=== PATIENT | female | born 1970 | race Caucasian/White ===

== ENCOUNTER 2016-11-16 11:01 | Emergency (ER) | payer OTHER ==
[2016-11-16 11:14] VITALS: TEMP 98.3; BMI 36.6
--- NOTE | 2016-11-16 11:32 | PDOC ---
History of Present Illness - General Chief Complaint: Pain Stated Complaint: PAIN Time Seen by Provider: 11/16/16 11:31 History Source: Patient, Interior Decorator Used (intelligence engineer [id number]) - History of Present Illness Initial Comments: 11/16/16 12:09 Chief complaint: "My stomach is large and I have a lot of abdominal pain." Pt. is a 46 y/o female with PMH umbilical hernial presents to the ED complaining of worsening abdominal pain for 2 days. Pt. states that she was diagnosed with an abdominal hernia 5 yrs ago and did not have surgery at that time. She states that she noticed her hernia getting larger over the last year. Her pain has increased as well. Pt. vomited twice this morning, and states that her stomach is larger. Admits to urinary frequency, constipation, weakness, abdominal pain with walking, but denies changes in color to the stool. Denies headache, fevers, chills, palpitations, chest pain, and SOB. Past History - Travel Traveled outside of the country in the last 30 days: No Close contact w/someone who was outside of country & ill: No - Past Medical History Allergies/Adverse Reactions: Allergies Allergy/AdvReac Type Severity Reaction Status Date / Time No Known Allergies Allergy Verified 11/16/16 11:04 Home Medications: Ambulatory Orders Unobtainable [Unobtainable] 11/16/16 Other medical history: arthritis - Psycho/Social/Smoking Cessation Hx Anxiety: No Suicidal Ideation: No Smoking History: Never smoked Have you smoked in the past 12 months: No Information on smoking cessation initiated: No Hx Alcohol Use: No Drug/Substance Use Hx: No Substance Use Type: None Review of Systems - Review of Systems Able to Perform ROS?: Yes Comments:: 11/16/16 12:39 intelligence engineer used, [id number] *Physical Exam - Vital Signs Last Vital Signs Temp Pulse Resp BP Pulse Ox 98.3 F 96 H 18 151/87 90 L 11/16/16 11:05 11/16/16 11:05 11/16/16 11:05 11/16/16 11:05 11/16/16 11:05 - Physical Exam General Appearance: Yes: Nourished, Appropriately Dressed, Mild Distress, Obese Respiratory/Chest: positive: Lungs Clear, Normal Breath Sounds, Respiratory Distress, Accessory Muscle Use. negative: Chest Tender, Rales, Rhonchi, Stridor , Wheezing Cardiovascular: positive: Regular Rhythm, Regular Rate, S1, S2 (present). negative: Murmur Gastrointestinal/Abdominal: positive: Normal Bowel Sounds, Tender (Diffuse abdominal tenderness with percussion and palpation. Tender over the hernia.), Soft, Distended, Hernia (Umbilical hernia approximately 2 cm, incarcerated.) Integumentary: positive: Normal Color, Dry, Warm Neurologic: positive: dental equipment repairer II-XII NML intact, Fully Oriented, Normal Response, Motor Strength / ED Treatment Course - LABORATORY CBC & Chemistry Diagram: 11/16/16 12:25 11/16/16 12:25 Medical Decision Making - Medical Decision Making 11/16/16 13:28 Pt. is a 46 y/o female with PMH of umbilical hernia who presents with worsening abdominal pain. Hernia is currently incarcerated. Tender over the hernia and LLQ , RLQ. Given her symptoms and history; will obtain CT abdomen at this time to r /o strangulation, SBO, bowel perforation. Will start IV fluids and medicate for pain. Re-evaluate. 11/16/16 16:[address], waiting for read at this time. Disposition after CT is read. Sign out given to Kristen Alston PA-C. *DC/Admit/Observation/Transfer Diagnosis at time of Disposition: Incarcerated umbilical hernia
[2016-11-16] MEDS ORDERED: SODIUM CHLORIDE 1,000 ML IV STA (11:57)
[2016-11-16] MEDS ORDERED: morphine CARPU-JECT 2 MG/1 ML DISP.SYRIN IVPUSH ONE (12:04)
[2016-11-16] MEDS ORDERED: morphine CARPU-JECT 2 MG/1 ML DISP.SYRIN ONE (12:17)
[2016-11-16 12:48] LABS: BASOPHIL 0.7 % (0-2.0); EOSINOPHIL 3.1 % (0-4.5); MCH 28.8 pg (25.7-33.7); MCHC 33.1 g/dl (32.0-36.0); MEAN CELL VOLUME 86.8 fl (80-96); MEAN PLT VOLUME 8.7 fl (7.5-11.1); NEUTROPHILS 51.7 % (42.8-82.8); PLATELET COUNT 274 K/MM3 (134-434); RDW 14.2 % (11.6-15.6); WHITE BLOOD COUNT 8.6 K/mm3 (4.0-10.0)
--- NOTE | 2016-11-16 13:14 | PDOC ---
*Physical Exam - Vital Signs Last Vital Signs Temp Pulse Resp BP Pulse Ox 98.3 F 96 H 18 151/87 90 L 11/16/16 11:05 11/16/16 11:05 11/16/16 11:05 11/16/16 11:05 11/16/16 11:05 - Physical Exam Comments: 11/16/16 13:13 Vital signs stable. Morbidly obese female Abdomen is distended, soft and diffusely tender greatest in the mid abdomen. There is a nonreducible umbilical hernia without discoloration, bowel sounds are otherwise within normal limits. ED Treatment Course - LABORATORY CBC & Chemistry Diagram: 11/16/16 12:25 11/16/16 12:25 - Medications Given in the ED: ED Medications Discontinued Medications Generic Name Dose Route Start Last Admin Trade Name Freq PRN Reason Stop Dose Admin Sodium Chloride 1,000 mls @ 1,000 mls/hr 11/16/16 11:57 11/16/16 12:20 Normal Saline - IV 11/16/16 12:56 1,000 mls/hr ASDIR STA Administration Morphine Sulfate 2 mg 11/16/16 12:04 11/16/16 12:20 Morphine Injection - IVPUSH 11/16/16 12:05 2 mg ONCE ONE Administration Medical Decision Making - Medical Decision Making 11/16/16 13:13 Patient seen and evaluated with the nurse practitioner. I agree with the overall evaluation, assessment, and management with the following summary of visit: 46-year-old female with 8 year history of umbilical hernia presents with obstruction-type symptoms, tender on exam with at least incarcerated umbilical hernia. Check labs, urinalysis Pain control CT of the abdomen and pelvis Reassess *DC/Admit/Observation/Transfer Diagnosis at time of Disposition: Irreducible umbilical hernia
[2016-11-16 13:17] LABS: ALBUMIN 3.9 g/dl (3.4-5.0); ANION GAP 8 (8-16); BILIRUBIN,TOTAL 0.3 mg/dL (0.2-1.0); CALCIUM 8.9 mg/dL (8.5-10.1); CO2 28 mmol/L (21-32); COCKROFT - GAULT 188.445; CREATININE 0.6 mg/dL (0.55-1.02); GLUCOSE,RANDOM 165 mg/dL (74-106); SGOT/AST 27 U/L (15-37); SGPT/ALT 47 U/L (12-78); TOT PROT 8.1 g/dl (6.4-8.2)
[2016-11-16 13:18] LABS: ALK PHOS 94 U/L (45-117)
--- NOTE | 2016-11-16 16:43 | PDOC ---
ED Treatment Course - LABORATORY CBC & Chemistry Diagram: 11/16/16 12:25 11/16/16 12:25 - ADDITIONAL ORDERS Additional order review: Laboratory Results 11/16/16 12:25 Sodium 139 Potassium 4.1 Chloride 103 Carbon Dioxide 28 Anion Gap 8 BUN 13 Creatinine 0.6 Creat Clearance w eGFR > 60 Random Glucose 165 H Calcium 8.9 Total Bilirubin 0.3 AST 27 ALT 47 Alkaline Phosphatase 94 Total Protein 8.1 Albumin 3.9 11/16/16 12:25 RBC 4.51 MCV 86.8 MCHC 33.1 RDW 14.2 MPV 8.7 Neutrophils % 51.7 Lymphocytes % 38.9 Monocytes % 5.6 Eosinophils % 3.1 Basophils % 0.7 - Medications Given in the ED: ED Medications Discontinued Medications Generic Name Dose Route Start Last Admin Trade Name Freq PRN Reason Stop Dose Admin Sodium Chloride 1,000 mls @ 1,000 mls/hr 11/16/16 11:57 11/16/16 12:20 Normal Saline - IV 11/16/16 12:56 1,000 mls/hr ASDIR STA Administration Morphine Sulfate 2 mg 11/16/16 12:04 11/16/16 12:20 Morphine Injection - IVPUSH 11/16/16 12:05 2 mg ONCE ONE Administration Progress Note - Progress Note Progress Note: I have received report from SAVI Burton regarding this patient. Pt's initial chief complaint: large and painful stomach Pt's work up completed prior to sign out: labs Pt treatment given from prior staff: IV morphine and IV fluids Pt plan to be completed: Waiting for CT abd/pelvis read Dispo: Pending Medical Decision Making - Medical Decision Making A/P: 46 y/o afebrile female with PMH umbilical hernia c/o worsening abdominal pain for the past 2 days. She was initially evaluated by SAVI Burton. Labs unremarkable. Awaiting results of CT scan of abd/pelvis. CT scan abd/pelvis IMPRESSION: Hepatomegaly with fatty infiltration. Please correlate with liver enzymes. Moderate size fat-containing hernia measuring approximately 5.5cm in maximum dimension without evidence of herniating bowel loops or incarceration. There is no evidence of small bowel obstruction. No free air, free fluid or enlarged lymph nodes are identified. Gave the patient her results. She said she does feel better after morphine. Will discharge to home with rx for tramadol for pain. Will give referral for surgical consult with Dr. Galvan. Instructed her to f/u with him ANASTASIA and return to the ER with any worsening or concerning symptoms. The patient verbalizes understanding of all instructions, has no further questions and is awaiting discharge. *DC/Admit/Observation/Transfer Diagnosis at time of Disposition: Umbilical hernia without obstruction and without gangrene - Discharge Dispostion Disposition: HOME Condition at time of disposition: Improved - Referrals Referrals: Johnnie Galvan MD [Staff Physician] - 1 week - Patient Instructions Printed Discharge Instructions: Abdominal Hernia Additional Instructions: Discharge Instructions: -A prescription for pain medication has been sent to your pharmacy; please take as directed. -Tramadol may cause drowsiness -You have a hernia. -Please call Dr. Galvan within 2 weeks to schedule appointment to discuss surgical options for your hernia -Return to the ER with any worsening or concerning symptoms Instrucciones de prem: -Marianne medicina recetada para el dolor cuevas sido enviada a moss farmacia; Por favor tome molly dirigido. -Tramadol puede causar somnolencia - Tienes marianne hernia. -Por favor, llame al Dr. Galvan dentro de 2 semanas para programar daren para discutir opciones quirrgicas para moss hernia -Vuelva a la enma de emergencias con cualquier empeoramiento o sntomas relacionados Print Language: [place]
[2016-11-16 17:31] VITALS: BP 117/75; PULSE 85
== END 2016-11-16 17:30 | disposition home or self-care (01) ==
LOC: JER 11:01
PROC: 3E033NZ Introduction of Analgesics, Hypnotics, Sedatives into Peripheral Vein, Percutaneous Approach (ICD-10-PCS; principal; 2016-11-16)
DX: K42.9 Umbilical hernia without obstruction or gangrene (principal)
CPT/HCPCS: 36415; 74177-TC; 80053; 85025; 96374; 99282-25